=== PATIENT | male | born 1975 | race Caucasian/White ===

== ENCOUNTER 2020-05-14 22:34 | Emergency (ER) | payer MEDICARE, MEDICAID, SELFPAY ==
[2020-05-14 22:42] VITALS: BP 124/83; PULSE 97; RESP 20; TEMP 37.1; O2SAT 98; BMI 26.2
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
[2020-05-15] MEDS: morphine 4 mg/mL SDV 1 mL IM (00:56)
== END 2020-05-15 01:27 ==
PROVIDERS: Emergency Provider Physician Assistant; PCP Nurse Practitioner Family
DX: S12.101A Unspecified nondisplaced fracture of second cervical vertebra, initial encounter for closed fracture (principal); V29.9XXA Motorcycle rider (driver) (passenger) injured in unspecified traffic accident, initial encounter; F17.210 Nicotine dependence, cigarettes, uncomplicated
CPT/HCPCS: 12345; 70450; 72125; 72128; 72131; 73030; 73502; 73562; 96372; 99282; 99284; J2270

== ENCOUNTER → 2020-07-10 10:30 | Outpatient (BNVA) | payer MEDICARE, MEDICAID, SELFPAY | PROVIDERS: PCP Nurse Practitioner Family; Referring Provider Nurse Practitioner Family; Visit Provider Nurse Practitioner Family | DX: M25.512 Pain in left shoulder (principal) | CPT/HCPCS: 73030 ==

== ENCOUNTER 2020-08-14 15:51 | Outpatient (CLI) | payer MEDICARE, MEDICAID, SELFPAY ==
--- NOTE | 2020-08-14 15:55 | MR_ITS ---
WS: [id number] MRI LEFT SHOULDER NONCONTRAST TECHNIQUE: Sagittal T2, coronal T1, T2 and proton density imaging. Axial gradient PDE imaging. CLINICAL INFORMATION: ROTATOR CUFF INJURY/LEFT SHOULDER PAIN COMPARISON: None. FINDINGS: Mild degenerative arthritis at the AC joint. Mild subacromial spurring with downsloping of the acromi on. Mild chronic thinning of the distal supraspinatus. Mild tendinopathy in the distal supraspinatus. No full-thickness rotator cuff tears. Tiny insertional tear at the supraspinatus insertion. Normal i nfraspinatus. Normal teres minor. Normal subscapularis. Normal biceps tendon in the bicipital groove. Normal biceps labral anchor. Glenoid labrum appears mauri ssly normal. Normal visualized soft tissues. Normal bone marrow signal. No acute fractures. MR/MR shoulder LT con* [id number] IMPRESSION: 1. Mild degenerative arthritis at the AC joint with mild edema and moderate do wnsloping of the acromion. Subacromial spurring. 2. Tendinopathy within the distal supraspinatus with a tiny insertional tear. 3. Rotator cuff is otherwise normal in appearance. No full-thickness rotator c uff tears. 4. Normal biceps tendon in the bicipital groove. 5. Normal biceps labral anchor. 6. No other significant findings.
== END 2020-08-14 15:52 | disposition home or self-care (01) ==
LOC: RADWPI 15:53
PROVIDERS: PCP Nurse Practitioner Family; Visit Provider Nurse Practitioner Family
DX: S46.002A Unspecified injury of muscle(s) and tendon(s) of the rotator cuff of left shoulder, initial encounter (principal); X58.XXXA Exposure to other specified factors, initial encounter; R53.1 Weakness; M19.012 Primary osteoarthritis, left shoulder
CPT/HCPCS: 73221

== ENCOUNTER 2021-08-26 00:29 | Emergency (ER) | payer MEDICARE, MEDICAID, SELFPAY ==
[2021-08-26] VITALS (18 sets, daily range): BP systolic 102–124; BP diastolic 68–81; PULSE 68–78; RESP 13–21; O2SAT 94–100; BMI 28.5
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
[2021-08-26 00:47] LABS: Glucose Point of Care 86 mg/dL (70-110)
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
[2021-08-26 01:05] LABS: Basophils # 0.1 10^3/uL (0.0-0.1); Basophils % 0.4 %; Eosinophils # 0.1 10^3/uL (0.0-0.8); Hemoglobin 13.1 g/dL (11.7-16.6); Lymphocytes # 2.3 10^3/uL (0.8-4.8); Lymphocytes % 16.8 %; Mean Corpuscular HGB Conc 33.6 g/dL (30.0-36.0); Mean Corpuscular Hemoglobin 32.4 pg (28.0-34.0); Mean Corpuscular Volume 96.5 fl (80-94); Mean Platelet Volume 8.8 fL (7.4-10.4); Monocytes # 0.7 10^3/uL (0.2-0.9); Monocytes % 5.1 %; Neutrophils # 10.17 10^3/uL (1.8-7.7); Neutrophils % 75.8 %; Nucleated Red Blood Cells % 0 %; Platelet Count 222 10^3/cmm (130-400); Red Blood Count 4.04 10^6/uL (4.1-5.3); Red Cell Distribution Width 13.2 % (12.1-15.1); White Blood Count 13.4 10^3/uL (4.0-10.0)
[2021-08-26] MEDS: iohexol 350 mg/mL 100 mL Btl IV ×2 (01:08)
[2021-08-26 01:24] LABS: Alanine Aminotransferase 60 U/L (0-41); Alkaline Phosphatase 78 IU/L (40-130); Anion Gap 13.6 (5-19); Aspartate Amino Transferase 93 U/L (0-40); Blood Urea Nitrogen 11 mg/dL (6-20); Calcium 8.8 mg/dL (8.5-10.5); Carbon Dioxide 26 mmol/L (22-29); Chloride 100 mmol/L (98-107); Globulin 3.5 g/dL (1.3-4.6); Glomerular Filtration Rate 81.2 mL/min (90-130); Glucose 82 mg/dL (65-115); Lipase 24 U/L (13-60); Osmolality Calculated 280 mOsm/kg (285-295); Potassium 3.6 mmol/L (3.5-5.1); Sodium 136 mmol/L (136-145); Total Bilirubin 0.4 mg/dL (0.15-1.2); Total Protein 7.5 g/dL (6.6-8.7)
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
[2021-08-26 01:54] LABS: ABG PCO2 53.5 mmHg (35-45); ABG PH Result 7.31 (7.35-7.45); Arterial Blood Gas Hematocrit 38.4 % (42-52); Base Excess ABG -0.3 mmol/L (-2.0-2.0); Blood Gas Allen Test Pos; Blood Gas Operator Identificat Anonymous; Blood Gas Sample Site Radial, left; Blood Gas Sample Type Arterial; HCO3 ABG 26.8 mmol/L (22-26); Oxygen Device ROOM AIR; PO2 ABG 88.3 mmHg (80.0-100.0)
[2021-08-26] MEDS: tetanus-dipt-pertussis 0.5 mL SDV IM (02:30)
--- NOTE | 2021-08-26 03:32 | P.PNCC_ITS ---
Critical Care Event Note Critical Care Event Prior to leaving with the ambulance, patient tried on multiple occasions to leave AGAINST MEDICAL ADVICE. Patient's family had to intervene outside the hospital to convince patient to go to [place]. Patient eventually did agreed with plan to go to [place]. Critical Care Time Critical Care Time: Code activated: No Critical Care Time (min): 5 Coding Level of Care Code Acute Behavioral Health Therapist for Ralf West
--- NOTE | 2021-08-26 04:27 | PC.NURSE ---
this nurse was helping ems transfer pt to [facility]. explained to patient he was leaving in the ambulance. pt then stated he was not going to [place] by ambulance. pt stated his family would take him. this nurse, EMS, and [facility] emt-p, and pt explained to pt the risks. pt refused. at this time Dr. Casillas and Donald Carr were notified and came to room. this nurse asked pt if there was a reason he didn't want to go by EMS and pt stated 'he wants to smoke on the way to [place]' EMT-P Ilana told pt he could smoke a cigarette out in the bay before they put him on the ambulance. Pt still refused at this point so this nurse stated to pt we should take it one step at a time and his family could go back to ambulance bay with him. pt stated 'sure lets do it' this nurse then left to find pt family in the parking lot. this nurse did hear verbal consent to transfer by ambulance after he was told his could go as well.
== END 2021-08-26 03:00 ==
PROVIDERS: Emergency Provider Emergency Medicine
DX: S02.40EA Zygomatic fracture, right side, initial encounter for closed fracture (principal); S12.110A Anterior displaced Type II dens fracture, initial encounter for closed fracture; S52.591A Other fractures of lower end of right radius, initial encounter for closed fracture; F17.210 Nicotine dependence, cigarettes, uncomplicated; V89.2XXA Person injured in unspecified motor-vehicle accident, traffic, initial encounter; Z23 Encounter for immunization
CPT/HCPCS: 36416; 36600; 70450; 70486; 70498; 71045; 71275; 72125; 72170; 73090; 74174; 80053; 82803; 82962; 83690; 85025; 90471; 90715; 99284; 99291; 99292; Q9967

== ENCOUNTER → 2021-12-22 11:17 | Outpatient (BNVA) | payer MEDICARE, MEDICAID, SELFPAY | PROVIDERS: Referring Provider Nurse Practitioner Family; Visit Provider Specialist | DX: M25.531 Pain in right wrist (principal); S52.501D Unspecified fracture of the lower end of right radius, subsequent encounter for closed fracture with routine healing; S52.101D Unspecified fracture of upper end of right radius, subsequent encounter for closed fracture with routine healing; S52.601D Unspecified fracture of lower end of right ulna, subsequent encounter for closed fracture with routine healing; X58.XXXD Exposure to other specified factors, subsequent encounter | CPT/HCPCS: 73110 ==

== ENCOUNTER → 2023-01-23 10:23 | Outpatient (BNVA) | payer MEDICARE, MEDICAID, SELFPAY | PROVIDERS: PCP Nurse Practitioner Family; Visit Provider Nurse Practitioner Family | DX: S52.601D Unspecified fracture of lower end of right ulna, subsequent encounter for closed fracture with routine healing (principal); S52.501D Unspecified fracture of the lower end of right radius, subsequent encounter for closed fracture with routine healing; X58.XXXD Exposure to other specified factors, subsequent encounter; M79.601 Pain in right arm | CPT/HCPCS: 73080; 73110 ==

== ENCOUNTER → 2023-09-22 10:49 | Outpatient (BNVA) | payer MEDICARE, MEDICAID, SELFPAY | PROVIDERS: PCP Nurse Practitioner Family; Referring Provider Nurse Practitioner Family; Visit Provider Nurse Practitioner Family | DX: M25.531 Pain in right wrist (principal) | CPT/HCPCS: 73110 ==

== ENCOUNTER → 2024-01-18 09:26 | Outpatient (BNVA) | payer MEDICARE, MEDICAID, SELFPAY | PROVIDERS: PCP Nurse Practitioner Family; Referring Provider Nurse Practitioner Family; Visit Provider Student in an Organized Health Care Education/Training Program | DX: M19.131 Post-traumatic osteoarthritis, right wrist | CPT/HCPCS: 73110; 99204 ==

== ENCOUNTER → 2024-07-23 10:11 | Outpatient (BNVA) | payer MEDICARE, MEDICAID, SELFPAY | PROVIDERS: PCP Nurse Practitioner Family; Visit Provider Student in an Organized Health Care Education/Training Program | DX: K46.9 Unspecified abdominal hernia without obstruction or gangrene (principal) | CPT/HCPCS: 99204 ==

== ENCOUNTER 2024-08-07 08:40 | Day surgery (SDC) | payer MEDICARE, SELFPAY ==
[2024-08-07] VITALS (10 sets, daily range): BP systolic 126–160; BP diastolic 46–94; PULSE 45–65; RESP 10–24; TEMP 36.2–36.5; O2SAT 95–99; BMI 28.5
[2024-08-07] MEDS: sodium chloride 0.9% 1,000 ML 30 ML IV (09:25)
--- NOTE | 2024-08-07 09:27 | ANES.PREANE2 ---
Pre-Anesthetic Assessment Height/Weight: Height 1.83 m Weight 95.254 kg Temp Pulse Resp BP Pulse Ox O2 Del Method 97.3 F L 65 16 130/91 98 Room Air 08/07/24 09:05 08/07/24 09:05 08/07/24 09:05 08/07/24 09:05 08/07/24 09:05 08/07/24 09:05 Operation Date: 08/07/24 10:20 Proposed Procedures p Inguinal Hernia Repair Open Inguinal Hernia Repair w/ Mesh [id number],K64.9(Right) - Jacobo Lewis MD Familial anesthetic complications: took a bit to get me to sleep Was Beta Lissett taken within 24 hours: N/A Was Clonidine taken within 24 hours: N/A Last intake: Intake Last Liquid Date 08/06/24 Last Liquid Time 23:30 Last Solid Date 08/06/24 Last Solid Time 22:00 Social Tobacco (vapes) and No alcohol Exam alert, oriented x 3, clear to auscultation bilaterally and regular rate & rhythm Airway Mallampati: Class III Dentition: false Comments: Comments: Fused cervical neck, extremely limited to almost no ability to extend head on neck Musc/skel Osteoarthritis/DJD Anesthetic Plan ASA status: 2 Anesthesia: General Risk of > 500 ml blood loss (7ml/kg in children): No Medications/Allergies Home Medications Medication Instructions Recorded Confirmed Last Taken Type alprazolam 1 mg tablet 1 mg PO DAILY 08/27/20 08/07/24 08/07/24 History baclofen 10 mg tablet 10 mg PO QID PRN muscle spasms 08/27/20 08/07/24 07/18/24 History esomeprazole magnesium 40 mg 40 mg PO DAILY 08/27/20 08/07/24 08/06/24 History capsule,delayed release (Nexium) acetaminophen 300 mg-codeine 60 mg 1 tab PO Q6H PRN Pain, Mild 12/22/21 08/07/24 08/06/24 History tablet celecoxib 400 mg capsule 400 mg PO DAILY 08/06/24 08/07/24 08/06/24 History Allergies Allergy/AdvReac Type Severity Reaction Status Date / Time Penicillins Allergy unknown Verified 08/07/24 09:02 promethazine [From Phenergan] Allergy ADR-Halluci Verified 08/06/24 11:10 [facility] Anesthesia Family History (Updated 07/23/24 @ 10:[address]) Father Cancer throat and lung Social History (Updated 07/23/24 @ 10:34 by SEAN Duarte) Smoking and tobacco/nicotine status: current every day tobacco/nicotine user (vape /w nicotine- quit smoking 12/2023) Alcohol intake: former Data Anesthesia Cardiac Studies: No Data to Display
--- NOTE | 2024-08-07 09:30 | W.PM.OPSFHP ---
Same Day Surgery H&P Indication for Procedure/HPI DATE OF PROCEDURE: August 07, 2024 CHIEF COMPLAINT/INDICATIONFOR SURGICAL PROCEDURE: Right inguinal hernia PREOP DIAGNOSIS: Right inguinal hernia PLANNED PROCEDURE: Operation Date: 08/07/24 10:20 Proposed Procedures p Inguinal Hernia Repair Open Inguinal Hernia Repair w/ Mesh [id number],K64.9(Right) - Jacobo Lewis MD Medications/Allergies* Home Medications Medication Instructions Recorded Confirmed Type alprazolam 1 mg tablet 1 mg PO DAILY 08/27/20 08/07/24 History baclofen 10 mg tablet 10 mg PO QID PRN muscle spasms 08/27/20 08/07/24 History esomeprazole magnesium 40 mg 40 mg PO DAILY 08/27/20 08/07/24 History capsule,delayed release (Nexium) acetaminophen 300 mg-codeine 60 mg 1 tab PO Q6H PRN Pain, Mild 12/22/21 08/07/24 History tablet celecoxib 400 mg capsule 400 mg PO DAILY 08/06/24 08/07/24 History Allergies/Adverse Reactions Allergy/AdvReac Type Severity Reaction Status Date / Time Penicillins Allergy unknown Verified 08/07/24 09:02 promethazine [From Phenergan] Allergy ADR-Halluci Verified 08/06/24 11:10 nating Pertinent History/Comorbid Conditions* Family History (Updated 07/23/24 @ 10:33 by SEAN Duarte) Cancer Father throat and lung Social History Smoking and tobacco/nicotine status: current every day tobacco/nicotine user (vape /w nicotine- quit smoking 12/2023) Alcohol intake: former Pertinent Exam Findings alert, oriented x 3, regular rate & rhythm and procedure specific exam findings Right inguinal hernia present. Surgical site marked in preop Recommendations Surgery/Procedure today Other Plans: OR for right inguinal hernia repair Coding Level of Care Code Acute Code for Chg Fwd Time Spent (min) 30
[2024-08-07] MEDS: vancomycin 1,000 MG in sodium chloride 0.9% 250 ML 250 MG IV (09:50)
[2024-08-07] MEDS: BUPivacaine 0.25% INJ 10 mL INJECTION (11:00)
[2024-08-07] MEDS: lidocaine-epi 1% 20 mL INJ INJECTION (11:00)
--- NOTE | 2024-08-07 11:18 | W.PM.BPON ---
Date of Procedure: 08/07/24 Surgeon: Jacobo Lewis MD Senior It Specialist(s): None Procedure(s) performed: Right inguinal hernia repair (direct and indirect inguinal hernia) using plug and patch technique. Findings of the procedure(s): Direct and indirect inguinal hernia. Estimated blood loss: <20cc Specimen(s) removed: NA Post-operative diagnosis: Right inguinal hernia
--- NOTE | 2024-08-07 13:15 | ANE.PACU2 ---
Inpatient post-anesthesia follow up: Airway intact: Yes Vital signs: Temperature 97.2 F Pulse Rate 50 Respiratory Rate 16 Blood Pressure 160/82 Pulse Oximetry 98 Oxygen Delivery Me thod Room Air Oxygen Flow Rate 6 Fraction of Inspir ed Oxygen Hydration adequate: Yes Nausea and vomiting: No Pain level: 1 Mental status: Baseline
--- NOTE | 2024-08-08 11:32 | W.PM.BPONFUL ---
Pathology: No pathology specimen sent. Implant(s): Plug and patch polypropylene mesh. Anesthesia: General anesthesia Complications: None Brief history/preop diagnosis: 49-year-old male who presented with a symptomatic right inguinal hernia. Full operative report: The patient was consented for right inguinal hernia repair using mesh. Risks and benefits were discussed with the patient and he agreed to proceed. Patient was brought into the operating room table and he was laid supine. SCDs were in place. Preoperative Ancef was administered. General anesthesia was induced. The right groin and was prepped and draped in the usual sterile fashion. A 5 cm incision was made along the location of the inguinal canal. Tissue dissection was carried down to the level of the external oblique fascia which was incised sharply. The ilioinguinal nerve was protected. I then proceeded to dissect out the cord structures with blunt dissection. I encircled this with a Dionicio. I dissected out a small indirect hernia sac as well as a large direct hernia sac. I reduced both hernias into the peritoneal cavity. I then proceeded to place a plug at the site of the deep inguinal ring. I secured the plug to the conjoint tendon as well as the inguinal ligament. I then proceeded to fix the posterior wall of the inguinal canal using a polypropylene mesh. The mesh was cut out to fit the hernia defect as well as to accommodate the cord. I sutured the polypropylene mesh to the quadrant tendon and the inguinal ligament. For this purpose a 2-0 Ethibond. I then proceeded to close the external oblique fascia using 3-0 Vicryl. Scarpas was closed using 3-0 Vicryl. Skin was closed using 4-0 Monocryl as well as surgical glue. Patient woke up from anesthesia without any complications. Condition: Stable Dispostion: Home
== END 2024-08-07 13:15 | disposition home or self-care (01) ==
PROVIDERS: PCP Nurse Practitioner Family; Visit Provider Student in an Organized Health Care Education/Training Program
PROC: (CPT 49505; principal; 2024-08-07 10:10)
DX: K40.90 Unilateral inguinal hernia, without obstruction or gangrene, not specified as recurrent (principal); F17.200 Nicotine dependence, unspecified, uncomplicated; M19.90 Unspecified osteoarthritis, unspecified site
CPT/HCPCS: 49505; 51702; C1781; J1100; J1885; J2250; J2405; J2704; J2710; J3010; J3370; J3490; J7030; J7050

== ENCOUNTER → 2024-08-22 11:15 | Outpatient (BNVA) | payer MEDICARE, SELFPAY | PROVIDERS: PCP Nurse Practitioner Family; Visit Provider Student in an Organized Health Care Education/Training Program | DX: Z98.890 Other specified postprocedural states (principal) | CPT/HCPCS: 99024 ==

== ENCOUNTER → 2025-08-07 14:01 | Outpatient (BNVA) | payer MEDICARE, SELFPAY | PROVIDERS: PCP Nurse Practitioner Family; Visit Provider Internal Medicine Cardiovascular Disease | DX: R07.9 Chest pain, unspecified (principal); R00.2 Palpitations; R42 Dizziness and giddiness; Z87.891 Personal history of nicotine dependence | CPT/HCPCS: 93005; 99204 ==